=== PATIENT | female | born 2000 | race Caucasian/White ===

== ENCOUNTER → 2021-05-29 | Outpatient (CLI) | payer OTHER ==
[2021-05-29 16:56] LABS: HEMOGLOBIN 13.5 gm/dl (12.3-15.3); RED BLOOD COUNT 4.98 M/UL (4.00-5.10); WHITE BLOOD COUNT 7.1 K/UL (4.5-11.0)
[2021-05-29 17:18] LABS: BUN/CREATININE RATIO 12 (0-10)
== END ==
LOC: RT 16:16
PROVIDERS: Registered Nurse
DX: Z51.81 Encounter for therapeutic drug level monitoring (principal); Z79.899 Other long term (current) drug therapy
CPT/HCPCS: 36415; 80053; 80061; 82607; 83036; 84439; 84443; 84702; 85025; 93005

== ENCOUNTER → 2021-08-13 | Outpatient (CLI) | payer OTHER | LOC: HEART 5 15:00 | DX: R00.2 Palpitations (principal) ==